=== PATIENT | male | born 1985 | race Caucasian/White ===

== ENCOUNTER 2017-07-03 17:43 | Emergency (ER) | payer OTHER ==
[~2017-07-03] VITALS: Ht 172.7 cm; Wt 70.3 kg
--- NOTE | 2017-07-03 17:50 | ED PSYCHIATRIC COMPLAINT ---
History of Present Illness General Chief Complaint: General Adult Stated Complaint: STATES SCRIPTS WERE FILLED AND LOST/STOLEN TODAY Source: patient Exam Limitations: no limitations Vital Signs & Intake/Output Vital Signs & Intake/Output Vital Signs Date Time Temp Pulse Resp B/P B/P Pulse O2 O2 Flow FiO2 Mean Ox Delivery Rate 07/03 1753 97 07/03 1752 97.7 107 16 150/86 95 Room Air Allergies Coded Allergies: MDX - Cefaclor (From [facility]) (UNKNOWN 08/14/11) Triage Nurses Notes Reviewed? yes Onset: Gradual Duration: getting worse Timing: recent history Severity: severe Severity Numbers: 7 HPI: Patient is a 32-year-old male with a past medical history of anxiety who presented to emergency not 2 days ago patient had prescriptions of gabapentin and Klonopin and Suboxone prescribed him where he states that his mother keeps his Suboxone however he is concerned that he lost his prescriptions of gabapentin and Klonopin that were filled 2 days ago however he believes he lost on an unknown region for the past 24 hours. Patient is requesting medication refills. Patient states that his anxiety has worsened due to losing his medications denies any illicit drug use denies any suicidal or homicidal ideation. HE HAS NOT TRIED TO CONTACT HIS PSYCHIATRIST TODAY. (Jose Machuca) Past History Travel History Traveled to [place] past 21 day No Medical History Any Pertinent Medical History? 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 No (Jose Machuca) Review of Systems Review of Systems Constitutional: Reports: no symptoms. EENTM: Reports: no symptoms. Respiratory: Reports: no symptoms. Cardiovascular: Reports: no symptoms. GI: Reports: no symptoms. Genitourinary: Reports: no symptoms. Musculoskeletal: Reports: no symptoms. Skin: Reports: no symptoms. Neurological/Psychological: Reports: see HPI, anxiety. Hematologic/Endocrine: Reports: no symptoms. Immunologic/Allergic: Reports: no symptoms. All Other Systems: Reviewed and Negative (Jose Machuca) Physical Exam Physical Exam General Appearance: anxious Head: atraumatic Eyes: Bilateral: normal appearance. Ears, Nose, Throat: hearing grossly normal Neck: normal inspection Respiratory: no respiratory distress Extremities: normal range of motion Neurological/Psychiatric: anxious Appearance/Memory/Insight: appropriate appearance, appropriate insight, denies illness Behavoir/Eye Contact/Speech: compulsive Thoughts/Hallucinations: no apparent hallucination Skin: intact, normal color SAD PERSONS Done? patient not suicidal (Jose Machuca) Progress Differential Diagnosis: drug intoxication, drug overdose, drug withdrawal, electrolyte abnormality, encephalitis, hypoglycemia, hypothyroidism, IC hem/mass /tumor, meningitis Plan of Care: Patient is not suicidal or homicidal After discussing with patient my concerns of his active benzodiazepine prescription that I did not feel comfortable at this time to prescribe patient another concomitant active prescription of a benzodiazepine Patient then became upset and which then I offered patient a substitute of Vistaril however he refuses medication I strongly advised patient to follow up with his prescriber tomorrow 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 Patient received a phone call from his brother in which he then eloped from the emergency room (Jose Machuca) Departure Departure Disposition: ER WALKOUT Condition: Stable Clinical Impression Primary Impression: Anxiety Referrals: Patient Has No Primary Care Dr (PCP/Family) Additional Instructions: Follow-up with your psychiatrist tomorrow return to emergency room if symptoms worsen Departure Forms: Customer Survey General Discharge Information (Jose Machuca) PA/RETORT OPERATOR Co-Sign Statement Statement: ED Attending supervision documentation- [] I saw and evaluated the patient. I have also reviewed all the pertinent lab results and diagnostic results. I agree with the findings and the plan of care as documented in the PA's/RETORT OPERATOR's documentation. [X] I have reviewed the ED Record and agree with the PA's/RETORT OPERATOR's documentation. [] Additions or exceptions (if any) to the PAs/RETORT OPERATOR's note and plan are summarized below: [] (Elke MITCHELL,Dilia)
[2017-07-03 17:52] VITALS: BP 150/86
[2017-07-05] MEDS ORDERED: SUBOXONE 8 MG-1 EACH SL (03:49)
[2017-07-05] MEDS ORDERED: FLUOXETINE HCL40 M1 PO (03:49)
== END 2017-07-03 18:05 ==
LOC: ERH 17:43
DX: Z76.0 Encounter for issue of repeat prescription (principal)